=== PATIENT | female | born 1960 | race Caucasian/White ===

== ENCOUNTER 2017-08-25 10:25 | Emergency (ER) | payer SELFPAY ==
[~2017-08-25] VITALS: Ht 154.9 cm; Wt 59.5 kg
[2017-08-25] MEDS ORDERED: ALBUTEROL/IPRATROPIUM 2.5MG/0.5MG, 3 ML ONE (11:28)
[2017-08-25] MEDS ORDERED: ALBUTEROL/IPRATROPIUM 2.5MG/0.5MG, 3 ML NPPB ONE (11:30)
[2017-08-25] MEDS ORDERED: SODIUM CHLORIDE FLUSH 10ML SYR IVF ONE (11:30)
[2017-08-25] MEDS ORDERED: KETOROLAC 30 MG/1 ML IM ONE (11:30)
[2017-08-25] MEDS ORDERED: KETOROLAC 30 MG/1 ML ONE (11:33)
[2017-08-25 12:06] LABS: RAPID INFLUENZA A Negative (Negative); RAPID INFLUENZA B Negative (Negative)
[2017-08-25 12:44] VITALS: BP 177/103
[2017-08-25] MEDS ORDERED: LEVOFLOXACIN 500 MG TABLET ONE (13:14)
[2017-08-25] MEDS ORDERED: LEVOFLOXACIN 750 MG TABLET PO ONE (13:30)
[2017-08-25] MEDS ORDERED: LEVOFLOXACIN 500 MG TABLET PO ONE (13:30)
== END 2017-08-25 13:29 | disposition home or self-care (01) ==
LOC: ED 13:00
DX: J18.9 Pneumonia, unspecified organism (principal); J44.1 Chronic obstructive pulmonary disease with (acute) exacerbation
CPT/HCPCS: 71020; 87400; 94640; 96372; 99285; J1885; J7512; J7620

== ENCOUNTER 2019-10-10 12:29 | Emergency (ER) | payer MEDICAID ==
[~2019-10-10] VITALS: Ht 154.9 cm; Wt 64.0 kg
[2019-10-10] MEDS ORDERED: SODIUM CHLORIDE FLUSH 10ML SYR IVF ONE (13:00)
[2019-10-10] MEDS ORDERED: ALBUTEROL/IPRATROPIUM 2.5MG/0.5MG, 3 ML NPPB ONE ×2 (13:00→15:00)
[2019-10-10] MEDS ORDERED: ALBUTEROL/IPRATROPIUM 2.5MG/0.5MG, 3 ML ONE ×2 (13:10→14:57)
--- NOTE | 2019-10-10 13:10 | NUR ---
PT SITTING ON GURNEY. [facility] IN ROOM.
--- NOTE | 2019-10-10 13:13 | NUR ---
RAD IN ROOM.
--- NOTE | 2019-10-10 13:15 | NUR ---
THIS IS A 58 YO F W/ C/O SOB AND COUGH X4 DAYS. HX OF COPD. 3L HOME O2 BUT RAN OUT OF O2 A FEW DAYS AGO. CURRENTLY ON 4L NC 95%. PT RESTING ON GURNEY. RESPIRATIONS ARE EVEN AND UNLABORED W/ FREQUENT NON PRODUCTIVE COUGH. EXPIRATORY WHEEZES NOTED. VS STABLE. NADN. CALL LIGHT IN REACH. DENIES FURTHER NEEDS AT THIS TIME.
--- NOTE | 2019-10-10 13:20 | NUR ---
RESPIRATORY IN ROOM.
[2019-10-10 13:39] LABS: ALANINE AMINOTRANSFERASE 17 U/L (12-78); ALBUMIN 3.6 g/dL (3.4-5.0); ANION GAP 6 mmol/L (5-15); CALCIUM 8.6 mg/dL (8.5-10.1); CHLORIDE 107 mmol/L (98-107); CREATININE 0.64 mg/dL (0.55-1.02)
[2019-10-10 13:40] LABS: ALKALINE PHOSPHATASE 137 U/L (45-117); BILIRUBIN,TOTAL 0.5 mg/dL (0.2-1.0); TOTAL PROTEIN 7.3 g/dL (6.4-8.2)
--- NOTE | 2019-10-10 13:48 | NUR ---
PT MEDICATED PER EMAR. REPORTS RELIEF OF SOB AFTER RESPIRATORY TX.
--- NOTE | 2019-10-10 13:55 | NUR ---
PHONE CALL FROM LAB. PT NEEDS REDRAW.
[2019-10-10 14:50] LABS: BASOPHILS # (AUTO) 0.14 x10^3/uL (0-0.1); BASOPHILS % (AUTO) 2 % (0-1); EOSINOPHILS % (AUTO) 2 % (1-7); LYMPHOCYTES # (AUTO) 2.58 x10^3/uL (1-3.4); LYMPHOCYTES % (AUTO) 27 % (22-44); MD SCAN; MEAN CORPUSCULAR HEMOGLOBIN 28.8 pg (27.0-34.8); MEAN CORPUSCULAR VOLUME 89.9 fL (80-100); MONOCYTES # (AUTO) 0.66 x10^3/uL (0.2-0.8); MONOCYTES % (AUTO) 7 % (2-9); NEUTROPHILS # (AUTO) 6.06 x10^3/uL (1.8-6.8); NEUTROPHILS % (AUTO) 63 % (42-75); PLATELET COUNT 281 x10^3/uL (130-400); RED BLOOD COUNT 6.03 x10^6/uL (3.82-5.3); RED CELL DISTRIBUTION WIDTH 15.6 % (9.6-15.2)
[2019-10-10 14:54] VITALS: BP 159/95
--- NOTE | 2019-10-10 14:56 | NUR ---
PT RESTING ON [facility] W/ CALL LIGHT IN REACH. VS UPDATED. AWAITING 2ND BREATHING TX.
--- NOTE | 2019-10-10 15:00 | NUR ---
PROVIDER AT BEDSIDE FOR RECHECK.
--- NOTE | 2019-10-10 15:15 | NUR ---
PT STATES THAT SHE DOES NOT WANT TO BE ADMITTED TO THE HOSPITAL THE PROVIDER SUGGESTED. PT AWARE SHE IS 85% ROOM AIR. AWARE OF THE RISKS OF LEAVING AGAINST MEDICAL ADVICE. PT STATES THAT HER FAMILY MEMBER WILL BRING A TANK OF OXYGEN FOR HER TO GO HOME WITH AND THAT SHE HAS ENOUGH OXYGEN TIL SHE CAN GET A REFILL. PT REPEATEDLEY STATES HER DESIRE TO GO HOME. EDUCATED ON DANGERS OF HYPOXIA. WILL SIGN AN AMA FORM.
--- NOTE | 2019-10-10 17:22 | NUR ---
I spoke with in house Installation Engineer about patients home oxygen. TAM advised that we call patients oxygen company to see if they can deliver oxygen here for patients discharge as hospital cannot get free oxygen for the patient. RN and Dr. Wang notified what TAM said.
--- NOTE | 2019-10-10 17:35 | NUR ---
IN ROOM TO SPEAK WITH PT. PT HAS REMOVED ALL MONITORING EQUIPMENT AND IS INSISTENT ON LEAVING. THIS RN WAS UNABLE TO CONVINCE PT TO STAY. AMA WAS SIGNED BY PT AND COPY GIVEN. MD MADE AWARE OF PTS POC AND AT THIS TIME MD PRINTS RX FOR PT. PT INFORMED OF THE RISKS OF REFUSING CARE WHICH INCLUDE HYPOXIA, RESPITORY DISTRESS AND LEADING UP TO AND INCLUDING . PT ACKNOWLEDGED THESE RISKS. PT WAS AMBULATED TO THE LOBBY WHERE BROTHER WAS WAITING WITH HER CAR. OXYGEN CYLINDERS WERE SEEN IN THE BACKSEAT OF THE VEHICLE. AT THIS TIME PT WAS AGAIN INFORMED THAT IF AT ANY TIME SHE CHANGES HER MIND AND WISHES TO BE SEEN TO PLEASE RETURN TO THE ER.
== END 2019-10-10 17:40 | disposition left against medical advice (07) ==
LOC: ED 15:08
DX: J44.1 Chronic obstructive pulmonary disease with (acute) exacerbation (principal); R09.02 Hypoxemia; F17.200 Nicotine dependence, unspecified, uncomplicated
CPT/HCPCS: 36415; 71045; 80053; 85025; 93005; 94640; 99284; J7512; J7620